=== PATIENT | male | born 1950 | race Caucasian/White ===

== ENCOUNTER → 2017-12-16 | Outpatient (CLI) | payer MEDICARE ==
[~2017-12-16] MED LIST: ALLEVIATE PO; ASCO-96 PO; BIOTIN PO; CIPR500T87 PO; GABAPENTIN PO; GLUCOSAMINE PO; GUAI200T2 PO; HAIR, SKIN, NAIL PO; NAPR220T77 PO; OXYC5TAB2 PO; TAMS-11 PO; TRAM50TA2 PO; [UNRECOGNIZED DRUG - OTHER] PO; [UNRECOGNIZED DRUG - OTHER] PO; [UNRECOGNIZED DRUG - OTHER] PO
[2017-12-16 13:54] LABS: MICROSCOPIC AUTO
== END | disposition home or self-care (01) ==
LOC: STAR 12:50
PROVIDERS: ATTEND Urology
DX: Z01.818 Encounter for other preprocedural examination (principal); N40.1 Benign prostatic hyperplasia with lower urinary tract symptoms; R33.8 Other retention of urine
CPT/HCPCS: 81001; 87077; 87086; 87186; 93005